=== PATIENT | female | born 1975 | race Caucasian/White ===

== ENCOUNTER → 2021-06-10 10:22 | Outpatient (CLI) | payer OTHER, SELFPAY ==
[2021-06-10 11:11] LABS: Add Manual Diff / Slide Review NO; Basophils Absolute Auto 0 /uL (0-100); Basophils Percent Auto 0.5 % (0-2); Eosinophils Absolute Auto 200 /uL (0-450); Eosinophils Percent Auto 2.7 % (2-4); Hematocrit 40.8 % (36-46); Hemoglobin 14.4 g/dL (12.0-16.0); Lymphocytes Absolute Auto 1900 /uL (1100-4500); Lymphocytes Percent Auto 23.7 % (25-40); Mean Corpuscular HGB Conc 35.2 % (30-36); Mean Corpuscular Hemoglobin 31.2 PG (26-34); Mean Corpuscular Volume 88.6 fL (80-100); Monocytes Absolute Auto 500 /uL (0-900); Monocytes Percent Auto 6.9 % (3-14); Neutrophils Absolute Auto 5200 /uL (1500-7000); Neutrophils Percent Auto 66.2 % (50-75); Platelet Count 358 X10^3/uL (150-400); Red Cell Distribution Width 12.7 % (11.6-14.8); White Blood Cell Count 7.9 X10^3/uL (4.5-11.0)
[2021-06-10 11:39] LABS: Alanine Aminotransferase 26 IU/L (<35); Albumin 4.3 g/dL (3.5-5.0); Albumin Globulin Ratio 1.3 (1.0-2.8); Alkaline Phosphatase 69 U/L (38-126); Aspartate Aminotransferase 33 IU/L (14-36); BUN Creatinine Ratio 13.2 (6-22); Bilirubin Total 0.5 mg/dL (0.2-1.3); Blood Urea Nitrogen 12 mg/dL (7-17); Calcium 9.7 mg/dL (8.4-10.2); Carbon Dioxide 26 mmol/L (22-32); Chloride 108 mmol/L (98-107); Cholesterol 175 mg/dL (140-199); Estimated Glomerular Filt Rate > 60.0 mL/min (>60); Globulin 3.3 g/dL (1.7-4.1); Glucose 88 mg/dL (70-100); HDL Cholesterol 64 mg/dL (40-60); HEMOLYSIS < 15 (0-50); LDL Cholesterol Calculated 85 mg/dL (<100); Potassium 4.2 mmol/L (3.4-5.1); Sodium 140 mmol/L (137-145); Total Protein 7.6 g/dL (6.3-8.2); Triglycerides 131 mg/dL (35-150)
[2021-06-10 13:52] LABS: TSH w/ Reflex to FT4 1.79 uIU/mL (0.47-4.68)
[2021-06-10 16:40] LABS: Vitamin D 25 Hydroxy (D3) 34.4 ng/mL (30.0-100.0)
== END ==
PROVIDERS: Family Provider Family Medicine; PCP Family Medicine; Referring Provider Family Medicine; Visit Provider Family Medicine
DX: Z30.09 Encounter for other general counseling and advice on contraception (principal)
CPT/HCPCS: 36415; 80053; 80061; 82306; 84443; 85025

== ENCOUNTER → 2021-07-27 07:27 | Outpatient (CLI) | payer OTHER, SELFPAY ==
--- NOTE | 2021-07-27 07:28 | DI.MG.S_ITS ---
BILATERAL DIGITAL SCREENING MAMMOGRAM 3D/2D WITH CAD: 07/27/2021 CLINICAL: Routine screening. Comparison is made to exams dated: 03/24/2018 mammogram, 11/15/2016 mammogram, and 09/24/2015 mammogram - outside location. There are scattered fibroglandular elements in both breasts. Current study was also evaluated with a Computer Aided Detection (CAD) system. There is a possible new 0.4 cm oval equal density focal asymmetry in the left breast at 12 o'clock middle depth. No other significant masses, calcifications, or other findings are seen in either breast. IMPRESSION: INCOMPLETE: NEEDS ADDITIONAL IMAGING EVALUATION The possible new 0.4 cm oval equal density focal asymmetry in the left breast is indeterminate. Additional views with possible ultrasound are recommended. This exam was interpreted at Station ID: [id number]. NOTE: For mammograms, a report in lay terms will be sent to the patient. Approximately 15% of breast malignancies will not be visualized mammographically. In the management of a palpable breast mass, a negative mammogram must not discourage biopsy of a clinically suspicious lesion. Electronically Signed By: You Anderson M.D. aty/:07/27/2021 11:15:45 letter sent: Additional Imaging Needed ACR BI-RADS Category 0: Incomplete 3340F
== END ==
PROVIDERS: Family Provider Family Medicine; PCP Family Medicine; Referring Provider Family Medicine; Visit Provider Family Medicine
DX: Z12.31 Encounter for screening mammogram for malignant neoplasm of breast (principal)
CPT/HCPCS: 77063; 77067

== ENCOUNTER → 2021-09-07 14:29 | Outpatient (CLI) | payer OTHER, SELFPAY ==
--- NOTE | 2021-09-07 14:30 | DI.US.S_ITS ---
ULTRASOUND OF LEFT BREAST: 09/07/2021 CLINICAL: Patient returns today to evaluate an asymmetry in the left breast. Comparison is made to exams dated: 09/07/2021 mammogram, 07/27/2021 mammogram - [facility], 03/24/2018 mammogram, 11/15/2016 mammogram, and 09/24/2015 mammogram - outside location. Color flow and real-time ultrasound of the left breast were performed. Pichardo scale images of the real-time examination were reviewed. There is a 0.5 cm x 0.3 cm x 0.4 cm oval cyst in the left breast at 12 o'clock middle depth 3 cm from the nipple. This oval cyst is hypoechoic with internal echoes. This correlates with mammography findings. Color flow imaging demonstrates that there is no vascularity present. IMPRESSION: PROBABLY BENIGN The 0.5 cm x 0.3 cm x 0.4 cm oval cyst in the left breast is consistent with a complicated cyst and is probably benign. A follow-up left mammogram and an ultrasound in 6 months is recommended to demonstrate stability. Findings and recommendations were conveyed to the patient during today's evaluation. This exam was interpreted at Station ID: [id number]. Electronically Signed By: You Anderson M.D. aty/:09/07/2021 15:58:19 letter sent: Followup Recommended Ultrasound BI-RADS: 3 Probably benign
--- NOTE | 2021-09-07 14:30 | DI.MG.S_ITS ---
UNILATERAL LEFT DIGITAL DIAGNOSTIC MAMMOGRAM 3D/2D WITH ADDITIONAL VIEWS: 09/07/2021 CLINICAL: Patient returns today to evaluate a focal asymmetry in the left breast. Comparison is made to exams dated: 07/27/2021 mammogram - [facility], 03/24/2018 mammogram, and 11/15/2016 mammogram - outside location. There are scattered fibroglandular elements in left breast. There is a 0.5 cm oval equal density focal asymmetry in the left breast at 12 o'clock middle depth. This is seen in today's additional views. No other significant masses or calcifications are seen in the breast. IMPRESSION: INCOMPLETE: NEEDS ADDITIONAL IMAGING EVALUATION The 0.5 cm oval equal density focal asymmetry in the left breast resembles a cyst or a lymph node and is indeterminate. An ultrasound is recommended for further evaluation and is scheduled to immediately follow this examination. This exam was interpreted at Station ID: [id number]. NOTE: For mammograms, a report in lay terms will be sent to the patient. Approximately 15% of breast malignancies will not be visualized mammographically. In the management of a palpable breast mass, a negative mammogram must not discourage biopsy of a clinically suspicious lesion. Electronically Signed By: You Anderson M.D. aty/:09/07/2021 15:29:48 ACR BI-RADS Category 0: Incomplete 3340F
== END ==
PROVIDERS: Family Provider Family Medicine; PCP Family Medicine; Referring Provider Family Medicine; Visit Provider Family Medicine
DX: R92.8 Other abnormal and inconclusive findings on diagnostic imaging of breast (principal); N60.02 Solitary cyst of left breast
CPT/HCPCS: 76642; 77065; G0279

== ENCOUNTER → 2022-03-11 11:57 | Outpatient (CLI) | payer OTHER, SELFPAY ==
--- NOTE | 2022-03-11 11:58 | DI.US.S_ITS ---
ULTRASOUND OF LEFT BREAST: 03/11/2022 CLINICAL: Patient returns today to evaluate an asymmetry in the left breast. Comparison is made to exams dated: 03/11/2022 mammogram, 09/07/2021 ultrasound, 09/07/2021 mammogram, 07/27/2021 mammogram - , 03/24/2018 mammogram, and 11/15/2016 mammogram - outside location. Color flow ultrasound of the left breast was performed. There is a 0.5 cm x 0.3 cm x 0.4 cm oval cyst in the left breast at 12 o'clock middle depth 3 cm from the nipple. This oval cyst is hypoechoic with internal echoes. This correlates with mammography findings. Color flow imaging demonstrates that there is no vascularity present. No significant abnormalities were seen sonographically in the left breast. IMPRESSION: BENIGN There is no sonographic evidence of malignancy. The 0.5 cm x 0.3 cm x 0.4 cm oval cyst in the left breast is consistent with a complicated cyst and is probably benign. Return to annual mammogram screening schedule is recommended. This exam was interpreted at Station ID: [id number]. Electronically Signed By: Shad Chau M.D., jr/mora:03/12/2022 16:01:07 Ultrasound BI-RADS: 2 Benign
--- NOTE | 2022-03-11 11:58 | DI.MG.S_ITS ---
UNILATERAL LEFT DIGITAL DIAGNOSTIC MAMMOGRAM 3D/2D SHORT-TERM FOLLOW-UP: 03/11/2022 CLINICAL: Short term follow up for the left breast. Comparison is made to exams dated: 09/07/2021 ultrasound, 09/07/2021 mammogram, 07/27/2021 mammogram - [facility], and 03/24/2018 mammogram - outside location. There are scattered areas of fibroglandular density in the left breast (category b / 25%-50% glandular tissue). There is a 0.5 cm oval equal density focal asymmetry in the left breast at 12 o'clock middle depth. This is not significantly changed. No other significant masses or calcifications are seen in the breast. IMPRESSION: INCOMPLETE: NEEDS ADDITIONAL IMAGING EVALUATION The 0.5 cm oval equal density focal asymmetry in the left breast is consistent with a cyst and is indeterminate. An ultrasound is recommended. Based on the Tyrer Cuzick model (a risk assessment model) the patient's lifetime risk is 7.7% and her 10 year risk is 1.5%. According to the ACR, ACS, and NCCN guidelines, an annual breast MRI exam along with mammogram is recommended if the patient's lifetime risk is 20% or greater. This exam was interpreted at Station ID: [id number]. NOTE: For mammograms, a report in lay terms will be sent to the patient. Approximately 15% of breast malignancies will not be visualized mammographically. In the management of a palpable breast mass, a negative mammogram must not discourage biopsy of a clinically suspicious lesion. Electronically Signed By: Shad Chau M.D., jr/mora:03/11/2022 17:40:07 ACR BI-RADS Category 0: Incomplete 3340F
== END ==
PROVIDERS: Family Provider Family Medicine; PCP Family Medicine; Referring Provider Family Medicine; Visit Provider Family Medicine
DX: N60.02 Solitary cyst of left breast (principal); R92.8 Other abnormal and inconclusive findings on diagnostic imaging of breast
CPT/HCPCS: 76642; 77065; G0279

== ENCOUNTER 2022-07-15 09:16 | Day surgery (SDC) | payer OTHER, SELFPAY ==
[2022-07-15 09:38] VITALS: BP 136/85; PULSE 79; RESP 16; TEMP 36.6; O2SAT 100; BMI 33.6
[2022-07-15] MEDS: LACTATED RINGERS 1,000 ML 42 ML IV (09:51)
--- NOTE | 2022-07-15 10:01 | PM.HP.1 ---
History of Present Illness History of Present Illness Date Patient Seen: 07/15/22 Time Patient Seen: 10:01 Chief complaint: Screening Colonoscopy Narrative: Krystina is a 47-year-old woman who is here for colonoscopy. She has never had 1 before. Her father was recently diagnosed with colon cancer and he is in his 70s. No other family history that she knows of. Patient History Medical History (Updated 07/15/22 @ 10:02 by Jordy Cortes MD) Migraines (~2015) Rosacea Vitamin D deficiency Surgical History Anesthesia History of ankle surgery (~11/2014) History of tonsillectomy (~1996) Family & Social History Family History (Updated 05/31/21 @ 19:44 by Anneliese Delgado) Father Hypertension Mother Hypertension Grandfather Alzheimer's disease Social History: household members spouse Tobacco & Substance use: Smoking Status Never smoker alcohol intake never Substance Use Type does not use Meds Home Medications and Allergies Home Medications Medication Instructions Recorded Confirmed Type cholecalciferol (vitamin D3) 1,250 1,250 mcg PO QWEEK #30 caps 06/01/21 07/15/22 Rx mcg (50,000 unit) capsule norethindrone-e.estradiol 1 tab PO DAILY #28 tabs 04/19/22 07/15/22 Rx triphasic 0.5 mg/0.75 mg/1 mg-35 mcg tablet (Ortho-Novum (28)) sodium sul 1.479 gram-potas ch See Rx Instructions PO PER PKG DIR 06/10/22 Rx 0.188 gram-magnes sul 0.225 gram #24 tabs tablet (Sutab) doxycycline hyclate 100 mg capsule 100 mg PO BID 07/15/22 07/15/22 History ivermectin 1 % topical cream 1 applic topical DAILY 07/15/22 07/15/22 History rizatriptan 10 mg tablet 10 mg PO PRN PRN Migraine Headache 07/15/22 07/15/22 History spironolactone 50 mg tablet 50 mg PO BID 07/15/22 07/15/22 History topiramate 50 mg PO BID 07/15/22 07/15/22 History Allergies Allergy/AdvReac Type Severity Reaction Status Date / Time amoxicillin Allergy Mild Rash Verified 07/15/22 09:30 Exam Vital Signs (past 8 hours): - 07/15/22 09:38 Temperature 97.9 F Pulse Rate 79 Respiratory Rate 16 Blood Pressure 136/85 Pulse Oximetry 100 Oxygen Delivery Method Room Air Oxygen Delivery Method Room Air Const General: healthy appearing Assessment & Plan Assessment and plan (1) Colon cancer screening: Status: Acute Plan We reviewed the risks and benefits of colonoscopy for colon cancer screening and she would like to proceed. Time Spent With Patient Critical Care time: I spent a total of [] minutes of critical care time on this patient's care today; this time is exclusive of procedural time.
--- NOTE | 2022-07-15 10:27 | PM.OP.COLON ---
Operative Date/Time/Diagnoses Date of procedure: 07/15/22 Time of procedure: 10:27 Pre-op diagnosis: Colon cancer screening Post-op diagnosis: same Procedure & Clinicians Study performed: Colonoscopy Same procedure as scheduled: Yes Surgeon: Jordy Cortes Procedure Notes Procedure in detail: Surgeon: Jordy Cortes MD Anesthesia: Mili Prather CRNA Procedure: The patient was brought to the endoscopy suite, placed in left lateral decubitus position. The patient was connected to monitoring devices. A time-out was performed. Sedation was administered. Once the patient was adequately sedated, a digital rectal exam was performed and was normal. The scope was then inserted and advanced to the cecum where the appendiceal orifice was identified and photographed. The terminal ileum was intubated and appeared normal. The scope was then slowly withdrawn over greater than 6 minutes. The mucosa was thoroughly inspected. No abnormalities were seen. The scope was retroflexed in the rectum. No abnormalities were seen. The scope was straightened and removed. The patient was awakened and brought to recovery. Scope withdrawal time: 7 minutes Sedation time: 13 minutes EBL: 0 Findings: Normal colon Post-procedure Disposition: PACU
[2022-07-15 10:30] VITALS: BP 97/62; PULSE 74; RESP 26; TEMP 36.3; O2SAT 98
[2022-07-15 10:36] VITALS: BP 98/61; PULSE 86; RESP 28; O2SAT 100
[2022-07-15 10:40] VITALS: BP 98/61; PULSE 77; RESP 26; O2SAT 98
== END 2022-07-15 10:55 | disposition home or self-care (01) ==
PROVIDERS: Family Provider Family Medicine; PCP Family Medicine; Referring Provider Surgery; Visit Provider Surgery
PROC: 0DJD8ZZ Inspection of Lower Intestinal Tract, Via Natural or Artificial Opening Endoscopic (ICD-10-PCS; CPT 45378; principal; 2022-07-15 10:15)
DX: Z12.11 Encounter for screening for malignant neoplasm of colon (principal)
CPT/HCPCS: 45378; J2704

== ENCOUNTER → 2022-12-02 07:10 | Outpatient (CLI) | payer OTHER, SELFPAY ==
--- NOTE | 2022-12-02 07:11 | DI.MG.S_ITS ---
BILATERAL DIGITAL SCREENING MAMMOGRAM 3D/2D WITH CAD: 12/02/2022 CLINICAL: Routine screening. Comparison is made to exams dated: 07/27/2021 mammogram - [facility], 03/24/2018 mammogram, 11/15/2016 mammogram - outside location, 03/11/2022 mammogram, and 03/11/2022 ultrasound - [facility]. There are scattered areas of fibroglandular density in both breasts (category b / 25%-50% glandular tissue). Current study was also evaluated with a Computer Aided Detection (CAD) system. There is a benign 0.5 cm oval cyst in the left breast at 12 o'clock middle depth. This is less prominent. No other significant masses, calcifications, or other findings are seen in either breast. IMPRESSION: BENIGN There is no mammographic evidence of malignancy. A 1 year screening mammogram is recommended. Based on the Tyrer Cuzick model (a risk assessment model) the patient's lifetime risk is 7.7% and her 10 year risk is 1.5%. According to the ACR, ACS, and NCCN guidelines, an annual breast MRI exam along with mammogram is recommended if the patient's lifetime risk is 20% or greater. This exam was interpreted at Station ID: [id number]. NOTE: For mammograms, a report in lay terms will be sent to the patient. Approximately 15% of breast malignancies will not be visualized mammographically. In the management of a palpable breast mass, a negative mammogram must not discourage biopsy of a clinically suspicious lesion. Electronically Signed By: Kike Retana M.D. slc/:12/02/2022 14:46:03 letter sent: Normal Exam ACR BI-RADS Category 2: Benign Finding(s) 3342F
[2022-12-02 08:08] LABS: Add Manual Diff / Slide Review NO; Basophils Absolute Auto 0 /uL (0-100); Basophils Percent Auto 0.5 % (0-2); Eosinophils Absolute Auto 200 /uL (0-450); Eosinophils Percent Auto 2.2 % (2-4); Hematocrit 40.7 % (36-46); Hemoglobin 14.2 g/dL (12.0-16.0); Lymphocytes Absolute Auto 1800 /uL (1100-4500); Lymphocytes Percent Auto 20.5 % (25-40); Mean Corpuscular HGB Conc 34.9 % (30-36); Mean Corpuscular Hemoglobin 30.7 PG (26-34); Mean Corpuscular Volume 87.8 fL (80-100); Monocytes Absolute Auto 700 /uL (0-900); Monocytes Percent Auto 8.5 % (3-14); Neutrophils Absolute Auto 5900 /uL (1500-7000); Neutrophils Percent Auto 68.3 % (50-75); Platelet Count 396 X10^3/uL (150-400); Red Blood Cell Count 4.64 X10^6/uL (4.0-5.2); Red Cell Distribution Width 12.6 % (11.6-14.8); White Blood Cell Count 8.7 X10^3/uL (4.5-11.0)
[2022-12-02 08:35] LABS: Alanine Aminotransferase 30 IU/L (<35); Albumin 4.1 g/dL (3.5-5.0); Albumin Globulin Ratio 1.3 (1.0-2.8); Alkaline Phosphatase 76 U/L (38-126); Aspartate Aminotransferase 27 IU/L (14-36); BUN Creatinine Ratio 12.5 (6-22); Bilirubin Total 0.3 mg/dL (0.2-1.3); Blood Urea Nitrogen 11 mg/dL (7-17); Calcium 9.4 mg/dL (8.4-10.2); Carbon Dioxide 26 mmol/L (22-32); Chloride 105 mmol/L (98-107); Cholesterol 166 mg/dL (140-199); Estimated Glomerular Filt Rate > 60 mL/min (>60); Globulin 3.1 g/dL (1.7-4.1); Glucose 99 mg/dL (70-100); HDL Cholesterol 62 mg/dL (40-60); HEMOLYSIS < 15 (0-50); LDL Cholesterol Calculated 79 mg/dL (<100); Potassium 4.1 mmol/L (3.4-5.1); Sodium 138 mmol/L (137-145); Total Protein 7.2 g/dL (6.3-8.2); Triglycerides 123 mg/dL (35-150)
[2022-12-02 08:43] LABS: Vitamin D 25 Hydroxy (D3) 39.5 ng/mL (30.0-100.0)
== END ==
PROVIDERS: Family Provider Family Medicine; PCP Family Medicine; Referring Provider Family Medicine; Visit Provider Family Medicine
DX: Z12.31 Encounter for screening mammogram for malignant neoplasm of breast (principal); E55.9 Vitamin D deficiency, unspecified; G43.909 Migraine, unspecified, not intractable, without status migrainosus; L71.9 Rosacea, unspecified
CPT/HCPCS: 36415; 77063; 77067; 80053; 80061; 82306; 85025

== ENCOUNTER → 2023-06-30 13:45 | Outpatient (CLI) | payer OTHER, SELFPAY ==
[2023-06-30 18:49] LABS: Follicle Stimulating Hormone 4.23 mIU/mL
== END ==
PROVIDERS: Family Provider Family Medicine; PCP Family Medicine; Referring Provider Family Medicine; Visit Provider Family Medicine
DX: N91.5 Oligomenorrhea, unspecified (principal)
CPT/HCPCS: 36415; 83001

== ENCOUNTER → 2023-11-16 09:43 | Outpatient (CLI) | payer OTHER, SELFPAY ==
[2023-11-16 10:36] LABS: Add Manual Diff / Slide Review NO; Basophils Absolute Auto 0 /uL (0-100); Basophils Percent Auto 0.4 % (0-2); Eosinophils Absolute Auto 200 /uL (0-450); Eosinophils Percent Auto 2.5 % (2-4); Hemoglobin 14.3 g/dL (12.0-16.0); Lymphocytes Absolute Auto 1800 /uL (1100-4500); Lymphocytes Percent Auto 22.9 % (25-40); Mean Corpuscular Hemoglobin 30.3 PG (26-34); Mean Corpuscular Volume 88.9 fL (80-100); Monocytes Absolute Auto 600 /uL (0-900); Neutrophils Absolute Auto 5300 /uL (1500-7000); Neutrophils Percent Auto 66.2 % (50-75); Platelet Count 372 X10^3/uL (150-400); Red Blood Cell Count 4.73 X10^6/uL (4.0-5.2); Red Cell Distribution Width 13.1 % (11.6-14.8); White Blood Cell Count 7.9 X10^3/uL (4.5-11.0)
[2023-11-16 11:02] LABS: Cholesterol 159 mg/dL (140-199); HDL Cholesterol 68 mg/dL (40-60); LDL Cholesterol Calculated 67 mg/dL (<100); Triglycerides 119 mg/dL (35-150)
[2023-11-16 11:10] LABS: Vitamin D 25 Hydroxy (D3) 37.1 ng/mL (30.0-100.0)
[2023-11-18 05:37] LABS: Apolipoprotein B 70 mg/dL (<90)
== END ==
PROVIDERS: Family Provider Family Medicine; PCP Family Medicine; Referring Provider Family Medicine; Visit Provider Family Medicine
DX: Z00.00 Encounter for general adult medical examination without abnormal findings (principal); Z12.4 Encounter for screening for malignant neoplasm of cervix; E55.9 Vitamin D deficiency, unspecified; G43.909 Migraine, unspecified, not intractable, without status migrainosus; L71.9 Rosacea, unspecified; N95.1 Menopausal and female climacteric states
CPT/HCPCS: 36415; 80061; 82172; 82306; 85025

== ENCOUNTER → 2023-12-06 14:13 | Outpatient (CLI) | payer OTHER, SELFPAY ==
--- NOTE | 2023-12-06 14:14 | DI.MG.S_ITS ---
BILATERAL DIGITAL SCREENING MAMMOGRAM 3D/2D WITH CAD: 12/06/2023 CLINICAL: Routine screening. Comparison is made to exams dated: 12/02/2022 mammogram, 07/27/2021 mammogram - [facility], and 03/24/2018 mammogram - outside location. Both breasts are almost entirely fatty (category a/<25% glandular tissue). Current study was also evaluated with a Computer Aided Detection (CAD) system. No significant masses, calcifications, or other findings are seen in either breast. There has been no significant interval change. IMPRESSION: NEGATIVE There is no mammographic evidence of malignancy. A 1 year screening mammogram is recommended. Based on the Tyrer Cuzick model (a risk assessment model) the patient's lifetime risk is 5.2% and her 10 year risk is 1.1%. According to the ACR, ACS, and NCCN guidelines, an annual breast MRI exam along with mammogram is recommended if the patient's lifetime risk is 20% or greater. This exam was interpreted at Station ID: [id number]. NOTE: For mammograms, a report in lay terms will be sent to the patient. Approximately 15% of breast malignancies will not be visualized mammographically. In the management of a palpable breast mass, a negative mammogram must not discourage biopsy of a clinically suspicious lesion. Electronically Signed By: Amelia barnett/mora:12/06/2023 17:58:06 letter sent: Normal Exam ACR BI-RADS Category 1: Negative 3341F
== END ==
PROVIDERS: Family Provider Family Medicine; PCP Family Medicine; Referring Provider Family Medicine; Visit Provider Family Medicine
DX: Z12.31 Encounter for screening mammogram for malignant neoplasm of breast (principal); R92.313 Mammographic fatty tissue density, bilateral breasts
CPT/HCPCS: 77063; 77067

== ENCOUNTER → 2024-07-31 16:05 | Outpatient (CLI) | payer OTHER, SELFPAY ==
[2024-07-31 18:08] LABS: Add Manual Diff / Slide Review NO; Basophils Absolute Auto 0 /uL (0-100); Basophils Percent Auto 0.4 % (0-2); Eosinophils Absolute Auto 200 /uL (0-450); Eosinophils Percent Auto 2.7 % (2-4); Hematocrit 43.1 % (36-46); Hemoglobin 14.6 g/dL (12.0-16.0); Lymphocytes Absolute Auto 2300 /uL (1100-4500); Lymphocytes Percent Auto 28.4 % (25-40); Mean Corpuscular HGB Conc 33.9 % (30-36); Mean Corpuscular Hemoglobin 30.2 PG (26-34); Mean Corpuscular Volume 89.2 fL (80-100); Monocytes Absolute Auto 800 /uL (0-900); Neutrophils Absolute Auto 4800 /uL (1500-7000); Neutrophils Percent Auto 58.5 % (50-75); Platelet Count 391 X10^3/uL (150-400); Red Blood Cell Count 4.83 X10^6/uL (4.0-5.2); Red Cell Distribution Width 12.9 % (11.6-14.8); White Blood Cell Count 8.3 X10^3/uL (4.5-11.0)
[2024-07-31 18:26] LABS: Alanine Aminotransferase 29 IU/L (<35); Albumin 4.4 g/dL (3.5-5.0); Albumin Globulin Ratio 1.3 (1.0-2.8); Alkaline Phosphatase 71 U/L (38-126); Aspartate Aminotransferase 30 IU/L (14-36); BUN Creatinine Ratio 9.2 (6-22); Bilirubin Total 0.3 mg/dL (0.2-1.3); Blood Urea Nitrogen 9 mg/dL (7-17); Calcium 9.5 mg/dL (8.4-10.2); Carbon Dioxide 23 mmol/L (22-32); Chloride 105 mmol/L (98-107); Cholesterol 176 mg/dL (140-199); Estimated Glomerular Filt Rate > 60 mL/min (>60); Globulin 3.4 g/dL (1.7-4.1); Glucose 74 mg/dL (70-100); HDL Cholesterol 56 mg/dL (40-60); HEMOLYSIS < 15 (0-50); LDL Cholesterol Calculated 86 mg/dL (<100); Potassium 3.7 mmol/L (3.4-5.1); Sodium 139 mmol/L (137-145); Total Protein 7.8 g/dL (6.3-8.2); Triglycerides 172 mg/dL (35-150)
[2024-07-31 18:56] LABS: TSH w/ Reflex to FT4 2.26 uIU/mL (0.47-4.68)
[2024-08-02 03:39] LABS: Apolipoprotein B 67 mg/dL (<90)
== END ==
PROVIDERS: Family Provider Family Medicine; PCP Family Medicine; Referring Provider Family Medicine; Visit Provider Family Medicine
DX: E55.9 Vitamin D deficiency, unspecified (principal); L71.9 Rosacea, unspecified; G43.909 Migraine, unspecified, not intractable, without status migrainosus
CPT/HCPCS: 36415; 80053; 80061; 82172; 84443; 85025

== ENCOUNTER → 2024-08-23 15:49 | Outpatient (CLI) | payer OTHER, SELFPAY ==
--- NOTE | 2024-08-23 15:55 | DIET.CONS ---
Dietary Consultation Note Assessment: 49 y F referred to dietitian for E55.9 - Vitamin D deficiency, unspecified, E66.9 - Obesity, unspecified, G43.909 - Migraine, unspecified, not intractable, without status migrainosus, L71.9 - Rosacea, unspecified Pt reports breaking her ankle 8 yr ago and a decline in activity since then with an increase in weight. Some days ankle is swollen and more painful than other days, but high impact activity is painful. Currently working from home, set to transition back to office in few months. Denies N/V/D/C. Regular BMs (type 4 on bristol stool chart) Diet recall: B-toast with cream cheese (white bread) or breakfast bar or cereal L-chx, salad with shrimp, or turkey sausage + string cheese or turkey and togolese sandwich (white bread) D- tacos with rice, chili with rice, salmon with potato (around 1 cup rice or 1 med potato) rarely snack after dinner 3-4 12 oz cups of water daily, no EtOH. Gets busy/distracted at work and doesn't feel hungry. Will sometimes forget lunch. Labs: lipid panel within normal limits except TG at 172 on 07/31/24 Ht: 5 ft 3 in Wt: 215 lb BMI: 38.0 Nutrition Diagnosis: Physical inactivity r/t reduced amount of activity options with hx of broken ankle aeb pt reports sedentary job and little activity weekly Interventions: Discussed and provided handouts on the following: -Balanced meals and snacks in line with myplate, Mediterranean style of eating -Portion sizing -Education on label reading -Fiber, amounts, types -Physical activity - showed and provided resource of different exercise videos from nutrition.gov including chair based activities, discussed moderate intensity level and goal of 150 mins/wk, strength and muscle building 2x/wk -Lab values and correlation with nutrition Goals: -Start with 20 minutes 2-3x/wk of elliptical or chair based low impact cardio/strength training -Add 2 fiber sources into breakfast and lunch -1-2 additional 12 oz glass of water -Consistent lunches - will be easier when return to office EER: 25-28 g fiber per day Electronically Signed by: Zoila Guerra 08/23/24 15:55 Clinical Dietitian [address] [id number]
== END ==
LOC: DIET 15:50
PROVIDERS: Family Provider Family Medicine; PCP Family Medicine; Referring Provider Family Medicine
DX: E55.9 Vitamin D deficiency, unspecified (principal); E66.9 Obesity, unspecified; G43.909 Migraine, unspecified, not intractable, without status migrainosus; L71.9 Rosacea, unspecified; Z68.38 Body mass index [BMI] 38.0-38.9, adult; Z71.3 Dietary counseling and surveillance
CPT/HCPCS: 97802